=== PATIENT | male | born 1950 | race Two or more races ===

== ENCOUNTER 2022-05-14 18:30 | Emergency (ER) | payer OTHER ==
[~2022-05-14] VITALS: Ht 167.6 cm; Wt 76.2 kg
== END 2022-05-14 22:32 | disposition home or self-care (01) ==
LOC: ER 18:30
DX: J22 Unspecified acute lower respiratory infection (principal); Z88.0 Allergy status to penicillin; Z20.822 Contact with and (suspected) exposure to COVID-19